=== PATIENT | female | born 1955 | race African-American/Black ===

== ENCOUNTER 2018-01-12 14:27 | Emergency (ER) | payer MEDICARE, MEDICAID ==
[~2018-01-12] VITALS: Ht 162.6 cm; Wt 76.5 kg
[~2018-01-12 14:27] MED LIST: ACET-2708; FLUT1DIS3; HYDR25TA; IBUP100T20; SERT50TA; [UNRECOGNIZED DRUG - CODE]
[2018-01-12 14:44] VITALS: BP 194/106
[2018-01-12] MEDS ORDERED: BACITRACIN ZINC OINT UDPKT TOP ONE (16:00)
[2018-01-12] MEDS ORDERED: TETANUS, DIPHTHERIA, PERTUSSIS VAC/PF 0.5ML (>7YR OLD) IM ONE (16:00)
[2018-01-12] MEDS ORDERED: LIDOCAINE HCL/PF 1% 10 MG/ML 5ML VIAL IJ ONE (16:00)
== END 2018-01-12 17:05 | disposition home or self-care (01) ==
LOC: ER 16:39
DX: S81.812A Laceration without foreign body, left lower leg, initial encounter (principal); I10 Essential (primary) hypertension; F17.200 Nicotine dependence, unspecified, uncomplicated; Z98.890 Other specified postprocedural states; Z88.8 Allergy status to other drugs, medicaments and biological substances; W25.XXXA Contact with sharp glass, initial encounter; Y93.89 Activity, other specified; Y92.89 Other specified places as the place of occurrence of the external cause; Y99.8 Other external cause status
CPT/HCPCS: 12002; 90471; 90715; 99283

== ENCOUNTER 2018-04-12 07:07 | Emergency (ER) | payer MEDICARE, OTHER ==
[~2018-04-12] VITALS: Ht 167.6 cm; Wt 69.0 kg
[2018-04-12] MEDS ORDERED: HYDROCODONE/ACETAMINOPHEN 5/325MG TABLET PO ONE (07:45)
[2018-04-12 08:29] VITALS: BP 140/100
[2018-04-12] MEDS ORDERED: BACITRACIN ZINC OINT UDPKT TOP ONE (08:30)
== END 2018-04-12 10:01 | disposition home or self-care (01) ==
LOC: ER 07:07
DX: S80.01XA Contusion of right knee, initial encounter (principal); S93.401A Sprain of unspecified ligament of right ankle, initial encounter; I10 Essential (primary) hypertension; J45.909 Unspecified asthma, uncomplicated; Z98.890 Other specified postprocedural states; Z88.8 Allergy status to other drugs, medicaments and biological substances; W01.0XXA Fall on same level from slipping, tripping and stumbling without subsequent striking against object, initial encounter; Y93.89 Activity, other specified; Y92.018 Other place in single-family (private) house as the place of occurrence of the external cause
CPT/HCPCS: 73560; 73600; 99283

== ENCOUNTER 2018-12-22 13:19 | Inpatient (IN) | payer MEDICARE, MEDICAID ==
[~2018-12-22] VITALS: Ht 160 cm; Wt 76.5 kg
[2018-12-22] MEDS ORDERED: KETOROLAC 15MG/ML VIAL IV ONE (17:00)
[2018-12-22 17:44] LABS: BASOPHILS % 0.6 % (0.0-2.0); EOSINOPHILS % 5.8 % (0.0-5.0); HEMATOCRIT. 44.5 % (36.0-48.0); HEMOGLOBIN. 14.5 g/dL (12.0-16.0); LYMPHOCYTES % 34.8 % (20.0-50.0); MEAN CORPUSCULAR VOLUME 95.1 fL (81.0-99.0); MEAN PLATELET VOLUME 8.5 fl (7.4-10.4); MONOCYTES % 7.6 % (2.0-8.0); NEUTROPHILS % 51.2 % (40.0-76.0); PLATELET 333 x1000/uL (130-400); RED BLOOD CELL COUNT 4.68 mill/uL (4.2-5.4)
[2018-12-22 17:49] LABS: CHLORIDE 106 mEq/L (98-107)
[2018-12-22 17:50] LABS: INR 0.9; PARTIAL THROMBOPLASTIN TIME 29.9 sec (23.4-31.0); PROTHROMBIN TIME 9.5 sec (9.6-11.0)
[2018-12-22] MEDS ORDERED: MORPHINE SULFATE 4 MG/ML CPJ (NOT FOR IM USE) IV STA (18:43)
[2018-12-22] MEDS ORDERED: ONDANSETRON HCL 4MG/2ML INJ IV STA (18:43)
[2018-12-22] MEDS ORDERED: DOCUSATE SODIUM 100MG CAPSULE PO PRN (20:00)
[2018-12-22] MEDS ORDERED: ONDANSETRON HCL 4MG/2ML INJ IV PRN (20:00)
[2018-12-22] MEDS ORDERED: ACETAMINOPHEN 325MG TABLET PO PRN (20:00)
[2018-12-22] MEDS ORDERED: CLONIDINE 0.1MG TABLET PO PRN (20:00)
[2018-12-22] MEDS: HYDROCODONE/ACETAMINOPHEN 5/325MG TABLET PO PRN (23:30)
[2018-12-23 02:57] VITALS: BP 141/77
[2018-12-23 04:00] VITALS: BP 138/92
[2018-12-23] MEDS: HYDROCODONE/ACETAMINOPHEN 5/325MG TABLET PO PRN ×4 (04:33→22:20)
[2018-12-23 06:08] LABS: BASOPHILS % 0.7 % (0.0-2.0); HEMATOCRIT. 39.3 % (36.0-48.0); LYMPHOCYTES % 43.7 % (20.0-50.0); MEAN CORPUSCULAR HEMOGLOBIN 31.4 pg (28.0-32.0); MEAN CORPUSCULAR VOLUME 95.2 fL (81.0-99.0); MEAN PLATELET VOLUME 8.7 fl (7.4-10.4); MONOCYTES % 8.6 % (2.0-8.0); PLATELET 282 x1000/uL (130-400); RED BLOOD CELL COUNT 4.13 mill/uL (4.2-5.4); RED CELL DISTRIBUTION WIDTH 12.7 % (11.6-14.6)
[2018-12-23 06:32] LABS: CHLORIDE 110 mEq/L (98-107)
[2018-12-23 08:47] VITALS: BP 133/59
[2018-12-23] MEDS: ASPIRIN 81MG EC TABLET PO SCH (09:46)
[2018-12-23] MEDS: AMLODIPINE 10MG TABLET PO SCH (09:46)
[2018-12-23] MEDS: ENOXAPARIN 40MG/0.4ML SYR SUBCUT SCH (09:47)
[2018-12-23] MEDS ORDERED: CYCLOBENZAPRINE 10MG TABLET PO PRN (11:00)
[2018-12-23] MEDS ORDERED: LORAZEPAM 2MG/ML CPJ IV PRN (12:15)
[2018-12-23] MEDS: NICOTINE 21MG PATCH TD SCH (12:35)
[2018-12-23] MEDS: HYDROCHLOROTHIAZIDE 25MG TABLET PO SCH (12:35)
[2018-12-23 12:41] VITALS: BP 134/67
[2018-12-23] MEDS ORDERED: HYDROMORPHONE HCL/PF 2MG/ML CPJ ONE (15:32)
[2018-12-23 16:21] VITALS: BP 138/83
[2018-12-23] MEDS: SERTRALINE HCL 50MG TABLET PO SCH (16:57)
[2018-12-23 20:00] VITALS: BP 148/71
[2018-12-24] VITALS: BP 138/74
[2018-12-24 04:19] VITALS: BP 128/71
[2018-12-24 08:00] VITALS: BP 153/76
[2018-12-24] MEDS: SERTRALINE HCL 50MG TABLET PO SCH (08:31)
[2018-12-24] MEDS: AMLODIPINE 10MG TABLET PO SCH (08:31)
[2018-12-24] MEDS: HYDROCHLOROTHIAZIDE 25MG TABLET PO SCH (08:31)
[2018-12-24] MEDS: ASPIRIN 81MG EC TABLET PO SCH (08:31)
[2018-12-24] MEDS: NICOTINE 21MG PATCH TD SCH (08:32)
[2018-12-24] MEDS: ENOXAPARIN 40MG/0.4ML SYR SUBCUT SCH (08:32)
[2018-12-24] MEDS: HYDROCODONE/ACETAMINOPHEN 5/325MG TABLET PO PRN (08:49)
[2018-12-24] MEDS ORDERED: SERT50TA PO (11:50)
[2018-12-24] MEDS ORDERED: HYDR25TA PO (11:50)
[2018-12-24] MEDS ORDERED: TRAM50TA94 MT (11:50)
[2018-12-24] MEDS ORDERED: ACET-2708 PO (11:50)
[2018-12-24 12:00] VITALS: BP 153/76
[2018-12-24] MEDS ORDERED: ACET-2708 MT (13:26)
[2018-12-24 14:42] VITALS: BP 131/77
== END 2018-12-24 16:11 | disposition home or self-care (01) | DRG 551 ==
LOC: ER 15:37 → 6WST 18:48 → EDBEDREQ 18:51 → EDBEDREQTM 18:51 → ENRESERV 21:09
PROVIDERS: ADMIT Hospitalist; ATTEND Hospitalist
DX: M47.812 Spondylosis without myelopathy or radiculopathy, cervical region (principal); E43 Unspecified severe protein-calorie malnutrition; G89.29 Other chronic pain; J45.909 Unspecified asthma, uncomplicated; M48.02 Spinal stenosis, cervical region; I10 Essential (primary) hypertension; M79.18 Myalgia, other site; F32.9 Major depressive disorder, single episode, unspecified; F17.200 Nicotine dependence, unspecified, uncomplicated; Z91.14 Patient's other noncompliance with medication regimen; Z87.828 Personal history of other (healed) physical injury and trauma; Z88.9 Allergy status to unspecified drugs, medicaments and biological substances; Z68.29 Body mass index [BMI] 29.0-29.9, adult; Z79.899 Other long term (current) drug therapy
CPT/HCPCS: 36415; 70551; 71045; 72141; 84484; 93005; 93970; 96374; 96375; 97162; 99285; J1170; J1650; J1885; J2060; J2270; J2405

== ENCOUNTER 2021-03-05 17:38 | Emergency (ER) | payer MEDICARE, MEDICAID ==
[~2021-03-05] VITALS: Ht 170.2 cm; Wt 75.0 kg
[~2021-03-05 17:38] MED LIST changes: -ACET-2708; +ACET-2708 MT; +ACET-2708 PO; -HYDR25TA; +HYDR25TA PO; -IBUP100T20; -SERT50TA; +SERT50TA PO; +TRAM50TA94 MT; -[UNRECOGNIZED DRUG - CODE]
[2021-03-05 19:09] LABS: BASOPHILS % 0.9 % (0.0-2.0); EOSINOPHILS % 1.2 % (0.0-5.0); HEMATOCRIT. 45.6 % (36.0-48.0); HEMOGLOBIN. 15.2 g/dL (12.0-16.0); LYMPHOCYTES % 19.1 % (20.0-50.0); MEAN CORPUSCULAR HEMOGLOBIN 31.3 pg (28.0-32.0); MEAN CORPUSCULAR VOLUME 93.8 fL (81.0-99.0); MEAN PLATELET VOLUME 8.1 fl (7.4-10.4); MONOCYTES % 6.8 % (2.0-8.0); PLATELET 365 x1000/uL (130-400); RED BLOOD CELL COUNT 4.86 mill/uL (4.2-5.4); RED CELL DISTRIBUTION WIDTH 12.7 % (11.6-14.6)
[2021-03-05 19:15] LABS: CHLORIDE 104 mEq/L (98-107)
[2021-03-05 22:00] VITALS: BP 118/74
== END 2021-03-05 22:13 | disposition home or self-care (01) ==
LOC: ER 17:38
DX: R04.0 Epistaxis (principal); I10 Essential (primary) hypertension; J45.909 Unspecified asthma, uncomplicated; Z79.899 Other long term (current) drug therapy
CPT/HCPCS: 36415; 80053; 84484; 85025; 93005; 99285

== ENCOUNTER 2021-09-25 09:09 | Emergency (ER) | payer OTHER, MEDICAID ==
[~2021-09-25] VITALS: Ht 162.6 cm; Wt 73.0 kg
[2021-09-25 09:21] VITALS: BP 163/79
[2021-09-25] MEDS ORDERED: HYDROCODONE/ACETAMINOPHEN 5/325MG TABLET PO ONE (09:30)
[2021-09-25] MEDS ORDERED: HYDR-4001 MT (10:49)
== END 2021-09-25 11:06 | disposition home or self-care (01) ==
LOC: ER 09:09
DX: M19.90 Unspecified osteoarthritis, unspecified site (principal); G89.29 Other chronic pain; I10 Essential (primary) hypertension; J45.909 Unspecified asthma, uncomplicated; F17.210 Nicotine dependence, cigarettes, uncomplicated; Z98.890 Other specified postprocedural states; Z88.8 Allergy status to other drugs, medicaments and biological substances
CPT/HCPCS: 99283